=== PATIENT | male | born 1975 | race Caucasian/White ===

== ENCOUNTER 2018-08-22 03:07 | Emergency (ER) | payer MEDICAID ==
[~2018-08-22] VITALS: Ht 172.7 cm; Wt 73.1 kg
[~2018-08-22 03:07] MED LIST: DOCU-144 PO; FER325 PO; PANT40TA3 PO
[2018-08-22 03:11] VITALS: Ht 172.7 cm; Wt 73.1 kg
[2018-08-22] MEDS ORDERED: hydrALAzine 20 MG INJ IV ONE (04:30)
[2018-08-22] MEDS ORDERED: HYDR25TA6 PO (05:50)
[2018-08-22 06:02] VITALS: BP 103/85; PULSE 75; RESP 18
--- NOTE | 2018-09-15 19:11 | ERD ---
ER Documentation Chief Complaint Chief Complaint frontal JOHNSON, sinus congestion stuffy nose x3 days. HPI This is a 42-year-old male complains of frontal headache for the past 3 days. He also complains of some stuffiness in his nose. He is noted that his blood pressure severely elevated as well. Is been taking [id number] cold medications. Denies any fevers chills nausea vomiting. Denies any other current complaints. ROS All systems reviewed and are negative except as per history of present illness. Medications Home Meds Active Scripts Hydrochlorothiazide* (Hydrochlorothiazide*) 25 Mg Tab, 25 MG PO DAILY, #30 TAB Prov:RICARDO BOONE S. 08/22/18 Docusate Sodium* (Colace*) 100 Mg Capsule, 100 MG PO BID, #60 CAP 2 Refills Prov:LIANNE GOULDP S. 02/03/16 Ferrous Sulfate* (Ferrous Sulfate*) 325 Mg Tabec, 325 MG PO BID, #60 TAB 2 Refills Prov:BELKIS GOULD S. 02/03/16 Pantoprazole* (Protonix*) 40 Mg Tablet.dr, 40 MG PO BID for 30 Days, #60 TAB 2 Refills Prov:RAAURELIANO MIEEP S. 02/03/16 Allergies Allergies: Coded Allergies: No Known Drug Allergies (Verified Allergy, Mild, 01/31/16) pork derived (porcine) (Verified Allergy, Mild, REDNESS ITCHING, 02/01/16) PMhx/Soc History of Surgery: Yes (APPENDECTOMY ) Anesthesia Reaction: No Hx Neurological Disorder: No Hx Respiratory Disorders: No Hx Cardiac Disorders: No Hx Psychiatric Problems: No Hx Miscellaneous Medical Probl: Yes (GASTRITIS) Hx Alcohol Use: Yes Hx Substance Use: No Hx Tobacco Use: No Smoking Status: Current some day smoker Physical Exam Physical Exam Const: No acute distress Head: Atraumatic Eyes: Normal Conjunctiva ENT: Normal External Ears, Nose and Mouth. Neck: Full range of motion. No meningismus. Resp: Clear to auscultation bilaterally Cardio: Regular rate and rhythm, no murmurs Abd: Soft, non tender, non distended. Normal bowel sounds Skin: No petechiae or rashes Back: No midline or flank tenderness Ext: No cyanosis, or edema Neur: Awake and alert Psych: Normal Mood and Affect Results 24 hrs Laboratory Tests Test 08/22/18 04:02 White Blood Count 9.6 10^3/ul Red Blood Count 4.62 10^6/ul Hemoglobin 13.4 g/dl Hematocrit 41.1 % Mean Corpuscular Volume 89.0 fl Mean Corpuscular Hemoglobin 29.0 pg Mean Corpuscular Hemoglobin Concent 32.6 g/dl Red Cell Distribution Width 14.0 % Platelet Count 295 10^3/UL Mean Platelet Volume 11.2 fl Immature Granulocytes % 0.200 % Neutrophils % 48.5 % Lymphocytes % 27.5 % Monocytes % 8.8 % Eosinophils % 14.0 % Basophils % 1.0 % Nucleated Red Blood Cells % 0.0 /100WBC Immature Granulocytes # 0.020 10^3/ul Neutrophils # 4.6 10^3/ul Lymphocytes # 2.6 10^3/ul Monocytes # 0.8 10^3/ul Eosinophils # 1.3 10^3/ul Basophils # 0.1 10^3/ul Nucleated Red Blood Cells # 0.0 10^3/ul Sodium Level 141 mmol/L Potassium Level 4.6 mmol/L Chloride Level 101 mmol/L Carbon Dioxide Level 29 mmol/L Anion Gap 11 Blood Urea Nitrogen 16 mg/dl Creatinine 1.14 mg/dl Est Glomerular Filtrat Rate mL/min > 60 mL/min Glucose Level 123 mg/dl Calcium Level 9.6 mg/dl Troponin I 0.060 ng/ml Current Medications Medications Dose Sig/Luis Antonio Start Time Status Last (Trade) Ordered Route PRN Stop Time Admin Dose Reason Admin Hydralazine 10 mg ONCE ONCE 08/22/18 DC 08/22/18 HCl IV 04:30 04:23 (Apresoline) 08/22/18 04:31 Procedures/MDM EKG: Rate/Rhythm: [Normal Sinus Rhythm] QRS, ST, T-waves: [No changes consistent w/ acute ischemia] Impression: [No evidence of ischemia or arrhythmia] Chest X-ray 1V Interpreted by me: Soft Tissue: No acute abnormalities Bones: No acute abnormalities Mediastinum/Cardiac Silhouette/Lungs: [No acute abnormalities] Medical decision: Patient's blood pressure was elevated (>120/80) but appears stable without evidence of hypertension emergency or urgency. The patient was counseled about the risks of hypertension and urged to pursue outpatient monitoring and therapy within a week with their primary care physician. Patient's neurologic symptoms have stabilized while they have been evaluated in the department and are appropriate for outpatient work up. No e/o meningitis, intracranial bleed, seizure, stroke. Departure Diagnosis: Primary Impression: Multiple complaints Condition: Stable Patient Instructions: A Sample Walking Program, Hypertension, Established, Out Of Control, Sinus Headache RICARDO BOONE September 15, 2018 19:11
== END 2018-08-22 06:02 | disposition home or self-care (01) ==
LOC: E/R 03:07
DX: R51 Headache (principal); F17.210 Nicotine dependence, cigarettes, uncomplicated; R09.89 Other specified symptoms and signs involving the circulatory and respiratory systems; R07.9 Chest pain, unspecified
CPT/HCPCS: 70450; 71045; 80048; 84484; 85025; 93005; J0360; 36415; 96374